=== PATIENT | female | born 1935 | race Caucasian/White ===

== ENCOUNTER 2017-01-28 19:43 | Inpatient (IN) | payer OTHER, MEDICAID ==
[~2017-01-28] VITALS: Ht 165.1 cm; Wt 97.2 kg
[2017-01-28 21:14] LABS: PLATELET COUNT 591 x10^3mcL (130-400); RED CELL DISTRIBUTION WIDTH 18.2 % (11.5-14.5)
[2017-01-28 21:23] LABS: ALKALINE PHOSPHATASE 305 U/L (46-116); ALT/SGPT 39 U/L (14-59); AMYLASE 32 U/L (25-115); AST/SGOT 41 U/L (15-37); BILIRUBIN TOTAL 0.6 mg/dL (0.20-1.00); CALCIUM 8.7 mg/dL (8.5-10.1); CARBON DIOXIDE 24.6 mmol/L (21-32); CHLORIDE SERUM 98 mmol/L (98-107); GLUCOSE SERUM 145 mg/dL (74-106); LIPASE 185 IU/L (73-393); SODIUM SERUM 135 mmol/L (136-145); TOTAL PROTEIN, SERUM 6.5 g/dL (6.4-8.2)
[2017-01-28 21:26] LABS: ALBUMIN 1.5 g/dL (3.4-5.0); CREATININE SERUM 5.5 mg/dL (0.6-1.0)
[2017-01-28] MEDS ORDERED: ASPIRIN325 M1 PO (21:43)
[2017-01-28] MEDS ORDERED: DOXEPIN PO (21:43)
[2017-01-28] MEDS ORDERED: LIPI20 PO (21:44)
[2017-01-28] MEDS ORDERED: PANTOPRAZOLE SO40 M1 PO (21:44)
[2017-01-28 21:45] LABS: BAND NEUTROPHIL 1 % (0-10); BASOPHIL 0 % (0-2); MONOCYTE 7 % (0-7); SEGMENTED NEUTROPHILS 85 % (37-75)
[2017-01-28] MEDS ORDERED: FLUTICASONE PROPIONA INH (21:45)
[2017-01-28 21:46] LABS: rbc morphology (normal/abnorm) ABNORMAL (NORMAL)
[2017-01-28] MEDS ORDERED: PROMETHAZINE W120 ML PO (21:46)
[2017-01-28 21:48] LABS: PLATELET MORPHOLOGY PLATELETS INCREASED
[2017-01-28 22:14] LABS: UA SPECIFIC GRAVITY >=1.030 (1.005-1.035); microscopic required? YES; urine erythrocyte NEGATIVE (NEGATIVE)
[2017-01-28 23:45] VITALS: BP 75/36
[2017-01-28 23:46] VITALS: BP 81/35
[2017-01-28 23:47] VITALS: BP 79/35
[2017-01-29] VITALS (9 sets, daily range): BP systolic 75–123; BP diastolic 36–65
[2017-01-29 00:11] LABS: IRON 12 ug/dL (50-170); TOTAL IRON BINDING CAPACITY 165 ug/dL (250-450)
[2017-01-29 00:14] LABS: MAGNESIUM 2.1 mg/dL (1.8-2.4); PHOSPHOROUS 3.6 mg/dL (2.5-4.9)
[2017-01-29 00:15] LABS: CHOLESTEROL/HDL RATIO 3.5
[2017-01-29 00:18] LABS: FREE T4 1.21 ng/dL (0.76-1.46); FREE THYROXINE INDEX 2.5 ug/dL (1.4-4.5)
[2017-01-29 00:27] LABS: RED BLOOD CELLS 3.04 M/mm3 (4.10-5.10)
[2017-01-29 00:37] LABS: T3 TOTAL 0.49 ng/mL
[2017-01-29 05:40] LABS: BASOPHIL % 0.4 % (0-2)
[2017-01-29 05:49] LABS: CALCIUM 8.2 mg/dL (8.5-10.1); CARBON DIOXIDE 21.3 mmol/L (21-32); CHLORIDE SERUM 102 mmol/L (98-107); GLUCOSE SERUM 141 mg/dL (74-106); PHOSPHOROUS 4.2 mg/dL (2.5-4.9); POTASSIUM SERUM 3.6 mmol/L (3.5-5.1); SODIUM SERUM 135 mmol/L (136-145)
[2017-01-29 05:54] LABS: RED CELL DISTRIBUTION WIDTH 17.6 % (11.5-14.5)
[2017-01-29 05:55] LABS: PLATELET COUNT 539 x10^3mcL (130-400); rbc morphology (normal/abnorm) ABNORMAL (NORMAL)
[2017-01-29 14:19] LABS: RED CELL DISTRIBUTION WIDTH 17.6 % (11.5-14.5)
[2017-01-29 14:30] LABS: PLATELET COUNT 525 x10^3mcL (130-400)
[2017-01-29 15:24] LABS: SEGMENTED NEUTROPHILS 83 % (37-75)
[2017-01-29 15:25] LABS: BAND NEUTROPHIL 1 % (0-10); MONOCYTE 8 % (0-7); rbc morphology (normal/abnorm) ABNORMAL (NORMAL)
[2017-01-29 15:27] LABS: PLATELET MORPHOLOGY PLATELETS INCREASED
[2017-01-29 22:32] LABS: PLATELET COUNT 444 x10^3mcL (130-400); RED CELL DISTRIBUTION WIDTH 18.8 % (11.5-14.5)
[2017-01-29 22:55] LABS: BAND NEUTROPHIL 4 % (0-10); METAMYELOCTE 3 % (0-2); MONOCYTE 3 % (0-7); SEGMENTED NEUTROPHILS 84 % (37-75)
[2017-01-29 22:58] LABS: PLATELET MORPHOLOGY PLATELETS NORMAL; ovalocyte/elliptocyte 1+; rbc morphology (normal/abnorm) ABNORMAL (NORMAL)
[2017-01-30] VITALS (10 sets, daily range): BP systolic 95–126; BP diastolic 43–61
[2017-01-30 05:20] LABS: BASOPHIL % 0.2 % (0-2)
[2017-01-30 05:33] LABS: CALCIUM 8.1 mg/dL (8.5-10.1); CARBON DIOXIDE 20.4 mmol/L (21-32); CHLORIDE SERUM 109 mmol/L (98-107); GLUCOSE SERUM 81 mg/dL (74-106); MAGNESIUM 2.2 mg/dL (1.8-2.4); PHOSPHOROUS 4.1 mg/dL (2.5-4.9); POTASSIUM SERUM 3.9 mmol/L (3.5-5.1); SODIUM SERUM 141 mmol/L (136-145)
[2017-01-30 05:35] LABS: CREATININE SERUM 4.7 mg/dL (0.6-1.0); PLATELET COUNT 411 x10^3mcL (130-400); RED CELL DISTRIBUTION WIDTH 18.8 % (11.5-14.5)
[2017-01-31] VITALS (9 sets, daily range): BP systolic 106–133; BP diastolic 58–75
[2017-01-31 04:52] LABS: BASOPHIL % 0.2 % (0-2); PLATELET COUNT 371 x10^3mcL (130-400)
[2017-01-31 05:00] LABS: CALCIUM 8.3 mg/dL (8.5-10.1); CARBON DIOXIDE 19.4 mmol/L (21-32); CHLORIDE SERUM 106 mmol/L (98-107); GLUCOSE SERUM 74 mg/dL (74-106); MAGNESIUM 2.7 mg/dL (1.8-2.4); PHOSPHOROUS 3.8 mg/dL (2.5-4.9); POTASSIUM SERUM 3.6 mmol/L (3.5-5.1); SODIUM SERUM 139 mmol/L (136-145)
[2017-01-31 05:05] LABS: CREATININE SERUM 4.4 mg/dL (0.6-1.0)
[2017-01-31 05:08] LABS: RED CELL DISTRIBUTION WIDTH 18.9 % (11.5-14.5)
[2017-02-01 06:00] VITALS: BP 128/66
[2017-02-01 06:58] LABS: BASOPHIL % 0.3 % (0-2); PLATELET COUNT 359 x10^3mcL (130-400)
[2017-02-01 07:02] LABS: RED CELL DISTRIBUTION WIDTH 18.9 % (11.5-14.5)
[2017-02-01 07:04] LABS: rbc morphology (normal/abnorm) ABNORMAL (NORMAL)
[2017-02-01 07:34] LABS: CALCIUM 8.5 mg/dL (8.5-10.1); CARBON DIOXIDE 18.7 mmol/L (21-32); CHLORIDE SERUM 110 mmol/L (98-107); GLUCOSE SERUM 81 mg/dL (74-106); PHOSPHOROUS 3.8 mg/dL (2.5-4.9); SODIUM SERUM 142 mmol/L (136-145)
[2017-02-01 07:54] LABS: CREATININE SERUM 4.2 mg/dL (0.6-1.0)
[2017-02-01 09:55] VITALS: BP 117/60
[2017-02-01 13:53] VITALS: BP 123/59
[2017-02-01 18:01] VITALS: BP 126/58
[2017-02-01 19:15] VITALS: BP 139/69
[2017-02-01 21:18] VITALS: BP 145/77
[2017-02-02 05:22] VITALS: BP 142/75
[2017-02-02 06:37] LABS: BASOPHIL % 0.4 % (0-2); PLATELET COUNT 348 x10^3mcL (130-400)
[2017-02-02 06:42] LABS: RED CELL DISTRIBUTION WIDTH 19.4 % (11.5-14.5)
[2017-02-02 06:54] LABS: CALCIUM 8.5 mg/dL (8.5-10.1); CARBON DIOXIDE 17.5 mmol/L (21-32); CHLORIDE SERUM 111 mmol/L (98-107); CREATININE SERUM 3.8 mg/dL (0.6-1.0); GLUCOSE SERUM 83 mg/dL (74-106); SODIUM SERUM 142 mmol/L (136-145)
[2017-02-02 09:16] VITALS: BP 133/66
[2017-02-02] MEDS ORDERED: ZOS3PM IV (10:50)
[2017-02-02] MEDS ORDERED: VITC PO (10:51)
[2017-02-02] MEDS ORDERED: LAC PO (10:51)
[2017-02-02] MEDS ORDERED: THERA TABS1 TAB PO (10:51)
[2017-02-02] MEDS ORDERED: HUMULIN R100 U/1 M1 SC (10:51)
[2017-02-02] MEDS ORDERED: REGLAN5 M1 PO (10:52)
[2017-02-02] MEDS ORDERED: PROTONIX40 MG/Pac1 PO (10:52)
[2017-02-02] MEDS ORDERED: NOVAPLUS F0.05 MG/Ac (10:53)
[2017-02-02] MEDS ORDERED: FER300 PO (10:54)
[2017-02-02] MEDS ORDERED: KLOR-CON M1010 MEQ PO (11:52)
[2017-02-02 14:53] VITALS: BP 133/66
== END 2017-02-02 16:15 | DRG 871 ==
LOC: ED 19:43 → DU 22:37 → MU 22:37 → IC 22:37 → DU 23:35 → IC 01-29 00:15 → DU 01-31 17:22 → MU 02-02 08:49
PROVIDERS: Emergency Medicine; Family Medicine; Internal Medicine Gastroenterology; ADMIT Family Medicine
PROC: B543ZZA Ultrasonography of Right Jugular Veins, Guidance (ICD-10-PCS; 2017-01-29)
PROC: 30233N1 Transfusion of Nonautologous Red Blood Cells into Peripheral Vein, Percutaneous Approach (ICD-10-PCS; 2017-01-29)
PROC: 0DB58ZX Excision of Esophagus, Via Natural or Artificial Opening Endoscopic, Diagnostic (ICD-10-PCS; 2017-01-29)
PROC: 05HM33Z Insertion of Infusion Device into Right Internal Jugular Vein, Percutaneous Approach (ICD-10-PCS; principal; 2017-01-29 08:30)
DX: A41.9 Sepsis, unspecified organism (principal); R65.21 Severe sepsis with septic shock; J69.0 Pneumonitis due to inhalation of food and vomit; J96.01 Acute respiratory failure with hypoxia; N17.0 Acute kidney failure with tubular necrosis; E43 Unspecified severe protein-calorie malnutrition; K22.11 Ulcer of esophagus with bleeding; E87.1 Hypo-osmolality and hyponatremia; D62 Acute posthemorrhagic anemia; K44.9 Diaphragmatic hernia without obstruction or gangrene; K21.9 Gastro-esophageal reflux disease without esophagitis; R91.8 Other nonspecific abnormal finding of lung field; E87.6 Hypokalemia; I10 Essential (primary) hypertension; H54.41 Blindness, right eye, normal vision left eye; E78.5 Hyperlipidemia, unspecified; Z68.26 Body mass index [BMI] 26.0-26.9, adult; Z79.82 Long term (current) use of aspirin; Z99.3 Dependence on wheelchair; Z86.73 Personal history of transient ischemic attack (TIA), and cerebral infarction without residual deficits
CPT/HCPCS: 36556; 36600; 43239; 82962; 83880; 84439; 97110-GP; 97530-GP; J0171; J0456; J0696; J1170; J1200; J1610; J1642; J1644; J2250; J2310; J2405; J2543; J2765; J2916; J3010; J3480; J3490; J7030; J7040; J7050; P9016; Q0092; Q0163